=== PATIENT | male | born 1990 | race Caucasian/White ===

== ENCOUNTER 2018-06-15 14:17 | Emergency (ER) | payer OTHER ==
[~2018-06-15] VITALS: Ht 190.5 cm; Wt 64.0 kg
[2018-06-15] MEDS ORDERED: CLINDAMYCIN HC300 MG PO (14:38)
[2018-06-15] MEDS ORDERED: Motrin,Rufen800 MG PO (14:38)
== END 2018-06-15 14:49 | disposition home or self-care (01) ==
LOC: ED 14:17
DX: K04.7 Periapical abscess without sinus (principal); Z88.0 Allergy status to penicillin; Z88.6 Allergy status to analgesic agent

== ENCOUNTER 2019-06-07 01:19 | Emergency (ER) | payer OTHER ==
[~2019-06-07] VITALS: Ht 190.5 cm; Wt 72.6 kg
[~2019-06-07 01:19] MED LIST: CLINDAMYCIN HC300 MG PO; Motrin,Rufen800 MG PO
[2019-06-07] MEDS ORDERED: IBU800 MG PO (02:23)
== END 2019-06-07 02:40 | disposition home or self-care (01) ==
LOC: ED 01:19
DX: S06.0X0A Concussion without loss of consciousness, initial encounter (principal); S00.83XA Contusion of other part of head, initial encounter; R56.9 Unspecified convulsions; F17.200 Nicotine dependence, unspecified, uncomplicated; Z88.0 Allergy status to penicillin; Z88.6 Allergy status to analgesic agent; Z79.2 Long term (current) use of antibiotics; Z79.899 Other long term (current) drug therapy; Y04.2XXA Assault by strike against or bumped into by another person, initial encounter; Y93.01 Activity, walking, marching and hiking; Y92.488 Other paved roadways as the place of occurrence of the external cause; Y99.8 Other external cause status

== ENCOUNTER 2019-11-06 02:11 | Emergency (ER) | payer OTHER ==
[~2019-11-06] VITALS: Ht 190.5 cm; Wt 75.3 kg
[~2019-11-06 02:11] MED LIST changes: +IBU800 MG PO
== END 2019-11-06 05:18 | disposition home or self-care (01) ==
LOC: ED 02:11
DX: S51.811A Laceration without foreign body of right forearm, initial encounter (principal); F10.129 Alcohol abuse with intoxication, unspecified; Z88.0 Allergy status to penicillin; Z88.6 Allergy status to analgesic agent; Z91.018 Allergy to other foods; W22.03XA Walked into furniture, initial encounter; Y93.89 Activity, other specified; Y92.89 Other specified places as the place of occurrence of the external cause; Y99.8 Other external cause status; Y90.9 Presence of alcohol in blood, level not specified

== ENCOUNTER 2019-11-17 00:13 | Emergency (ER) | payer OTHER | END 2019-11-17 01:00 | disposition left against medical advice (07) | LOC: ED 00:13 | DX: Z48.02 Encounter for removal of sutures (principal); Z53.21 Procedure and treatment not carried out due to patient leaving prior to being seen by health care provider ==